=== PATIENT | male | born 1965 | race Caucasian/White ===

== ENCOUNTER 2018-09-20 20:51 | Inpatient (IN) | payer OTHER ==
[2018-09-20 23:00] LABS: ADD MAN DIFF? NO
[2018-09-20] MEDS: ONDANSETRON 4 MG INJ IV (23:00)
[2018-09-20] MEDS: morphine 4 MG/ML VIAL IV (23:01)
[2018-09-20] MEDS: SOD CHLORIDE 0.9% 500 ML IV (23:01)
[2018-09-20 23:02] LABS: WHITE BLOOD COUNT 9.4 10^3/ul (4.8-10.8)
[2018-09-20 23:02] LABS: BASOPHILS % 0.3 % (0.0-2.0); EOSINOPHILS % 0.2 % (0.0-7.0); HEMOGLOBIN 14.2 g/dl (14.0-18.0); LYMPHOCYTES # 0.9 10^3/ul (0.8-2.9); LYMPHOCYTES % 9.7 % (15.0-51.0); MEAN CORPUSCULAR HEMOGLOBIN 31.1 pg (29.0-33.0); MEAN CORPUSCULAR HGB CONC 33.8 g/dl (32.0-37.0); MEAN CORPUSCULAR VOLUME 92.1 fl (82.0-101.0); MEAN PLATELET VOLUME 10.5 fl (7.4-10.4); MONOCYTE # 0.5 10^3/ul (0.3-0.9); MONOCYTES % 5.5 % (0.0-11.0); NEUTROPHIL # 7.9 10^3/ul (1.6-7.5); NEUTROPHILS % 84.1 % (39.0-77.0); PLATELET COUNT 203 10^3/UL (140-415); RED BLOOD COUNT 4.56 10^6/ul (4.70-6.10); RED CELL DISTRIBUTION WIDTH 11.7 % (11.5-14.5)
[2018-09-20 23:21] LABS: ALANINE AMINOTRANSFERASE 28 IU/L (13-69); ALBUMIN 4.5 g/dl (3.3-4.9); ALBUMIN/GLOBULIN RATIO 1.28; ALKALINE PHOSPHATASE 77 IU/L (42-121); ANION GAP 9 (5-13); ASPARTATE AMINO TRANSFERASE 32 IU/L (15-46); BILIRUBIN,INDIRECT 0.3 mg/dl (0-1.1); BILIRUBIN,TOTAL 0.3 mg/dl (0.2-1.3); BLOOD UREA NITROGEN 19 mg/dl (7-20); CARBON DIOXIDE 30 mmol/L (21-31); CHLORIDE 105 mmol/L (97-110); CREATININE 1.31 mg/dl (0.61-1.24); Estimated GFR 57 mL/min (>60); GLUCOSE 148 mg/dl (70-220); LIPASE 91 U/L (23-300); POTASSIUM 3.7 mmol/L (3.5-5.1); SODIUM 144 mmol/L (135-144)
[2018-09-21] MEDS: CEFTRIAXONE 1 GM/50 ML (PMX) 50 ML IVPB (01:01)
[2018-09-21] MEDS: morphine 4 MG/ML VIAL IV (01:34)
[2018-09-21 01:41] LABS: ADD UMIC YES; UR ASCORBIC ACID NEGATIVE (NEGATIVE); UR BILIRUBIN (Dip) NEGATIVE (NEGATIVE); UR BLOOD (Dip) 2+ mg/dL (NEGATIVE); UR CLARITY CLEAR (CLEAR); UR COLOR STRAW (YELLOW); UR GLUCOSE (Dip) NEGATIVE (NEGATIVE); UR KETONES (Dip) TRACE mg/dL (NEGATIVE); UR LEUKOCYTE ESTERASE (Dip) NEGATIVE Leu/ul (NEGATIVE); UR NITRITE (Dip) NEGATIVE (NEGATIVE); UR RBC 27 /HPF (0-5); UR SPECIFIC GRAVITY (Dip) 1.012 (1.003-1.030); UR TOTAL PROTEIN (Dip) NEGATIVE (NEGATIVE); UR UROBILINOGEN (Dip) NEGATIVE (NEGATIVE); UR WBC 7 /HPF (0-5)
[2018-09-21] MEDS ORDERED: DOCUSATE SODIUM 100 MG CAP PO (02:00)
[2018-09-21] MEDS ORDERED: morphine 2 MG INJ IV (02:00)
[2018-09-21] MEDS ORDERED: NACL 0.9% 3 ML SYG IV (02:00)
[2018-09-21] MEDS ORDERED: ACETAMINOPHEN 325 MG TAB PO (02:00)
[2018-09-21] MEDS ORDERED: BISACODYL (EC) 5 MG TAB PO (02:00)
[2018-09-21] MEDS: HYDROmorphONE 1 MG/ML SYG IV ×2 (02:53→06:50)
[2018-09-21] MEDS: ONDANSETRON 4 MG INJ IV (02:53)
[2018-09-21] MEDS: hydrALAzine 20 MG INJ IV (03:59)
[2018-09-21] MEDS: SOD CHLORIDE 0.9% 1,000 ML IV ×3 (04:49→12:23)
[2018-09-21] MEDS: HYDROCODONE/APAP (5/325) TAB PO (04:50)
[2018-09-21] MEDS: TAMSULOSIN (SR) 0.4 MG CAP PO ×2 (05:29→20:47)
[2018-09-21] MEDS: AMLODIPINE 2.5 MG TAB PO ×2 (05:31→07:30)
[2018-09-21] MEDS ORDERED: HYDROmorphONE 0.5 MG/0.5 ML SYG IV (17:00)
[2018-09-21] MEDS: HEPARIN 5,000 UNIT/1 ML VIAL SC (20:50)
[2018-09-22] MEDS ORDERED: AMLODIPINE 5 MG TAB PO (09:00)
[2018-09-23 20:17] LABS: PSA, FREE 0.4 ng/mL
== END 2018-09-21 22:55 | disposition home or self-care (01) | DRG 694 ==
LOC: E/R 20:51 → PP2 09-21 00:48
DX: N13.2 Hydronephrosis with renal and ureteral calculous obstruction (principal); N17.9 Acute kidney failure, unspecified; I10 Essential (primary) hypertension
CPT/HCPCS: 74018; 74176; 80053; 81001; 83690; 84153; 84154; 85025